=== PATIENT | female | born 1950 | race Two or more races ===

== ENCOUNTER → 2024-05-23 | Outpatient (CLI) | payer MEDICARE, BC, SELFPAY ==
--- NOTE | 2024-05-23 09:30 | XR_ITS ---
Examination: Breast ultrasound complete, bilateral Date and time of exam: May 23, 2024 0937 hours INDICATIONS: Mammogram April 18, 2024 retroareolar focal asymmetry 28 mm right breast and retroareolar region left breast Technique: Real-time grayscale ultrasonographic imaging bilateral breasts, including all 4 quadrants as well as nipple retroareolar and axillary regions. Findings: Sonographic images right breast 2:00 oval mass circumscribed 3 x 2 x 3 mm Sonographic images left breast 2:00 cyst 2.2 x 0.9 x 1.4 cm with internal debris, consider seroma, clinical correlation advised IMPRESSION: 2:00 cystic area left breast with internal echoes 2.2 x 0.9 x 1.4 cm, this is amenable to ultrasound-guided aspiration and cytologic analysis as clinically warranted
--- NOTE | 2024-05-23 10:45 | XR_ITS ---
Examination: Diagnostic digital mammography, bilateral Computer aided detection 3-D breast Tomosynthesis, bilateral Date and time of exam: May 23, 2024 0951 hours INDICATIONS: Mammogram April 18, 2024, 20 mm focal asymmetry inner right breast CC view, focal asymmetry retroareolar region left breast Technique: Nonmagnified MLO, CC views of the breasts to been obtained, reconstructed from 3-D Tomosynthesis images. R2 computer aided detection program utilized for evaluation of suspicious masses and/or abnormal calcifications. 3-D Tomosynthesis images obtained. Findings: The breasts are heterogeneously dense, which may obscure small masses Architectural distortion left breast skin thickening again noted consistent with history treated left breast cancer Focal asymmetry inner right breast CC view remains No discrete left breast mass identified, please see the left breast sonogram report today indicating several nerve versus cyst 2:00 position left breast Impression: BI-RADS Category 3: Probably benign findings One additional 6 month right mammogram follow-up is needed to document stability of focal asymmetry inner right breast CC view.
== END | disposition home or self-care (01) ==
PROVIDERS: PCP Nurse Practitioner Family; Referring Provider Nurse Practitioner Family; Visit Provider Nurse Practitioner Family
DX: R92.333 Mammographic heterogeneous density, bilateral breasts (principal); N64.89 Other specified disorders of breast; N60.02 Solitary cyst of left breast
CPT/HCPCS: 76641; 77062; 77066; G0279

== ENCOUNTER → 2024-07-01 | Outpatient (CLI) | payer MEDICARE, BC, SELFPAY ==
--- NOTE | 2024-07-01 15:28 | XR_ITS ---
Examination: PA lateral chest 2 views TECHNIQUE: Upright PA lateral chest 2 views Exam date and time: July 01, 2024 at 1602 hours Comparison September 07, 2023 INDICATIONS: Preop lumbar spine surgery scheduled July 12, 2024 FINDINGS: Mild prominence left ventricle No pneumonia or pulmonary edema Moderate thoracic spondylosis Anterior mediastinal surgical clips IMPRESSION: Mild prominence left ventricle No pneumonia or pulmonary edema
[2024-07-01 16:36] LABS: Basophils % (Auto) 1 % (0-2.5); Eosinophils # (Auto) 0.2 Thou/mm3 (0.0-0.5); Eosinophils % (Auto) 3 % (0-10); Hematocrit 41.2 % (36.0-46.0); Hemoglobin 13.2 g/dL (12.0-16.0); Immature Granulocytes % (Auto) 0 % (0-0); Immature Granulocytes Auto 0.01 Thou/mm3 (0.00-0.00); Lymphocytes # (Auto) 2.1 Thou/mm3 (1.0-4.8); Lymphocytes % (Auto) 30 % (10-50); Mean Corpuscular Hemoglobin 28.8 pg (25.0-35.0); Mean Corpuscular Volume 90 fL (80-100); Monocytes # (Auto) 0.7 Thou/mm3 (0.0-0.8); Monocytes % (Auto) 10 % (0-12); Neutrophils # (Auto) 3.9 Thou/mm3 (1.8-7.7); Neutrophils % (Auto) 56 % (37-80); Nucleated Red Blood Cell % 0 /100 WBC (0); Platelet Count 235 Thou/mm3 (140-440); Red Blood Count 4.59 Miln/mm3 (4.00-5.20)
[2024-07-01 16:50] LABS: Prothrombin Time 10.8 Seconds (9.0-12.2)
[2024-07-01 16:55] LABS: Collection Type, Urine Clean Catch
[2024-07-01 16:56] LABS: Glucose Estimated Average 97 mg/dL (80-131)
[2024-07-01 16:57] LABS: Alanine Aminotransferase 23 U/L (10-49); Albumin, Serum 4.7 gm/dL (3.4-4.8); Alkaline Phosphatase 47 U/L (46-116); Anion Gap 8 (7-16); Aspartate Amino Transferase 21 U/L (0-34); BUN/Creatinine Ratio 22 Ratio (12-20); Bilirubin,Total 0.3 mg/dL (0.3-1.2); Blood Urea Nitrogen 22 mg/dL (9-23); Calcium 9.4 mg/dL (8.3-10.6); Calcium (Corrected) 9.4 mg/dL (8.5-10.1); Carbon Dioxide 27.8 mMol/L (20.0-31.0); Chloride 106 mMol/L (98-107); Globulin 2.3 gm/dL (2.3-3.5); Glucose 117 mg/dL (74-106); Osmolality,Calculated 287 (275-295); Potassium 4.1 mMol/L (3.4-5.1); Sodium 142 mMol/L (136-145); eGFR 59 See Note
[2024-07-01 16:59] LABS: Vitamin D 25 Hydroxy Total 13.1 ng/mL (7.3-40.2)
[2024-07-01 17:47] LABS: Bacteria,Urine 1+; Bilirubin,Urine 1+ (Negative); Blood,Urine Negative (Negative); Clarity,Urine Hazy (Clear/Hazy); Color,Urine Yellow (Lt Yel-Yel); Culture Indicated,Urine Contaminated; Glucose, Urine Negative (Negative); Hyaline Casts,Urine < 1 /hpf (0-1); Ketones,Urine Trace (Negative); Leukocyte Esterase,Urine Positive (Negative); Nitrite,Urine Negative (Negative); PH,Urine 5.5 (5.0-7.0); Protein,Urine 1+ (Neg - Trace); RBC,Urine 14 /hpf (0-3); Specific Gravity,Urine 1.036 (1.001-1.035); Squamous Epithelial Cell,Urine 15 /hpf (0-5); WBC,Urine 14 /hpf (0-5)
== END | disposition home or self-care (01) ==
LOC: COPL 15:10
PROVIDERS: PCP Family Medicine; Referring Provider Nurse Practitioner Family; Visit Provider Radiology Diagnostic Radiology
DX: I11.9 Hypertensive heart disease without heart failure (principal); M48.062 Spinal stenosis, lumbar region with neurogenic claudication
CPT/HCPCS: 36415; 71046; 80053; 81001; 82306; 83036; 85025; 85610; 85730

== ENCOUNTER → 2024-07-04 | Outpatient (CLI) | payer MEDICARE, BC, SELFPAY ==
[2024-07-04 15:59] LABS: Collection Type, Urine Clean Catch
[2024-07-04 16:34] LABS: Bacteria,Urine 3+; Bilirubin,Urine Negative (Negative); Blood,Urine Trace (Negative); Color,Urine Yellow (Lt Yel-Yel); Glucose, Urine Negative (Negative); Ketones,Urine Trace (Negative); Leukocyte Esterase,Urine Positive (Negative); Nitrite,Urine Negative (Negative); PH,Urine 5.5 (5.0-7.0); Protein,Urine 1+ (Neg - Trace); RBC,Urine 11 /hpf (0-3); Specific Gravity,Urine 1.036 (1.001-1.035); Squamous Epithelial Cell,Urine 105 /hpf (0-5); Urobilinogen,Urine Negative mg/dL (0.0-1.0); WBC,Urine 25 /hpf (0-5)
[2024-07-04 16:38] LABS: Clarity,Urine Cloudy (Clear/Hazy)
== END | disposition home or self-care (01) ==
LOC: SLDO 15:49
PROVIDERS: PCP Nurse Practitioner Family; Referring Provider Nurse Practitioner Family; Visit Provider Nurse Practitioner Family
DX: N39.0 Urinary tract infection, site not specified (principal)
CPT/HCPCS: 81001; 87077; 87086; 87186

== ENCOUNTER 2024-07-06 14:37 | Outpatient (RCR) | payer MEDICARE, BC, SELFPAY ==
--- NOTE | 2024-07-07 14:27 | CTCFLWUP_ITS ---
Patient: MARIANA ENGEL : 1950 Page 2 of 2 FOLLOW UP NOTE DATE OF SERVICE: 07/06/2024 NAME: MARIANA ENGEL ACCOUNT: [id number] : 1950 AGE: 73 INTERVAL HISTORY: Doing well with no new complaints. Patient is being planned for procedure on her back. She has stop ped taking her anastrozole and will resume after the surgery on Thursday. 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 01/11/2019: Bone density test?normal mineralization based on lumbar spine measurements, normal mineral ization based on hip measurements. Lumbar mineralization increased 4.1% compared to February 24, 2012. Hip mineralization decreased to 6.9% compared with 02/24/2012. 01/17/2019: Patient had left breast ultrasound done for a left breast palpable lump at 12 o'clock posi tion of 2 months duration. 02/07/2019: Ultrasound-guided biopsy of the left breast mass was performed. Pathology showed intermed iate grade ER positive (more than 90%), FL positive (more than 50%), HER-2/huong negative invasive ductal carcinoma. 02/24/2019: Patient was seen by radiation oncologist Dr. Sam Foster. 03/03/2019: Patient had left breast partial mastectomy with left axillary sentinel lymphadenectomy. 0 04/12/2019?12 04/2019: Patient received 6600 cGy radiation to the left breast. 06/09/2019: Patient was started on anastrozole, Citracal as well as Prolia. 01/17/2020: Bilateral breast ultrasound? 02/22/2020: Left breast cyst aspiration? 03/01/2021: Left breast cyst aspiration? 07/28/2021: Right breast diagnostic mammogram? 01/20/2022: Bilateral screening mammograms?BI-RADS Category 2: Benign findings. 03/05/2022: Bone density 04/14/2023: Bilateral breast mammogram screening Findings: The breasts are heterogeneously dense, which may obscure small masses. Stable left-sided postoperative changes. Left retroareolar asymmetry. No evidence of abnormal masses or suspicious calcifications. Impression: Left retroareolar asymmetry. Spot compression views and ultrasound evaluation recommended. 07/09/2023: Left breast biopsy, no malignant cells. 07/27/2023: CEA 2.0, CA 15-3 is 11.0 02/15/2024: Left breast diagnostic mammogram 02/19/2024: Left breast ultrasound 02/25/2024: CEA 1.4, CA 15-3 is 14.6 03/07/2024: Left breast biopsy and aspiration 03/08/2024: Left breast diagnostic mammogram OTHER MEDICAL HISTORY/CONDITIONS: FAMILY HISTORY: SOCIAL HISTORY: ARCHITECTURE TECHNICIAN HISTORY: MEDICATIONS: 1. anastrozole - 1 mg 1 tab Daily 2. Citracal - 1 tab Twice a Day 3. fenofibrate - 54 mg 1 tab Daily 4. losartan - 50 mg 1 tab Daily Medications Last Reconciled by Ene Ballard MA on 07/06/2024 ALLERGIES: No Known Allergies REVIEW OF SYSTEMS: A complete 14-point review of systems was performed and is negative except as noted in interval histo ry. PHYSICAL EXAMINATION: VITAL SIGNS: Temperature?98.4, B/P?148/77, Oxygen?Saturation?95% PAIN: 3 - Between mild and moderate pain ECOG Performance Status: 1 - Symptomatic; ambulatory; restricted in strenuous activity GENERAL APPEARANCE: Appears well, in no apparent distress, appropriately interactive. HEENT: Normocephalic, no temporal wasting, normal conjunctiva, no scleral icterus, normal hearing, li ps without lesions, neck normal range of motion. CARDIOVASCULAR: Not assessed. PULMONARY: Normal respiratory effort, no respiratory distress or use of accessory muscles, speaking i n full sentences, no tachypnea. EXTREMITIES: No pedal edema or cyanosis. SKIN: Normal skin appearance. NEUROLOGIC: Alert and oriented x4. PSHYCHIATRIC: Appropriate affect, mood normal, behavior normal, intact thought and speech. Breast examination revealed scarring from surgery in the left breast. Otherwise no palpable masses i n either breast or axilla LABORATORY DATA: I have personally reviewed and interpreted each of the patient?s relevant lab tests, abnormal finding s are below: Date 07/01/24 ??WHITE?BLOOD?COUNT?(Thou/mm3) 7.0 ??RED?BLOOD?COUNT?(Miln/mm3) 4.59 ??HEMOGLOBIN?(gm/dl) 13.2 ??HEMATOCRIT?(%) 41.2 ??PLATELET?COUNT?(Thou/mm3) 235 ??NEUTROPHILS?%,?AUTO?(%) 56 ??LYMPH?%,?AUTO?(%) 30 ??NEUTROPHILS,?AUTO?(Thou/mm3) 3.9 ASSESSMENT/PLAN: . 1. Stage IIa, ER positive, FL positive, HER-2/huong negative high-grade invasive ductal carcinoma with the superior margin being positive off the left breast as described above status post lumpectomy and sentinel node biopsy. Oncotype DX recurrence score 20 4. Status post radiation therapy. 5. Hypertension 6. Left breast biopsy, no malignancy, 03/07/2024 and 07/09/2023. Patient now want to follow-up with Dr Samantha Bowens's and will do any biopsy with him only. She does not like that she has to have multiple mamm ograms and ultrasound followed with biopsies. She likes to follow-up for imaging also with a Dr. Erlin seals. 7. Patient reports she had a normal colonoscopy in 2014. 8. Left breast ultrasound recommending repeat aspiration of partial cystic mass, 02/19/2024. 9. Bilateral mammogram screening scheduled for 04/18/2024. 1. No clinical evidence of recurrence. 2. Continue anastrozole, Citracal as well as Prolia. 3. DEXA. 4. Return to clinic for follow-up in 3 to 4 months. 5. CBC CMP CA 15-3 prior to follow-up Patient will resume anastrozole once surgery is done CBC CMP CA 15-3 RETURN TO CLINIC: 6 months BILLING AND COMPLIANCE: I reviewed external records from providers outside my specialty as summarized above. I spent a total of 50 minutes on this patient?s care on the day of their visit excluding time spent related to any bi lled procedures. This time includes time spent with the patient as well as time spent documenting in the medical record, reviewing patients records and tests, obtaining history, placing orders, communi cating with other healthcare professionals, counseling the patient, family or caregiver, and/or care coordination for the diagnoses above. Electronically Signed by: Giovanny Hood MD T: 2:25 PM CC: PCP: Teagan Raymundo Referring: Teagan Raymundo This document was completed utilizing speech recognition software. Grammatical errors, random word in sertions, pronoun errors, and incomplete sentences are an occasional consequence of this system due t o software limitations, ambient noise, and hardware issues. Any formal questions or concerns about th e content, text or information contained within the body of this dictation should be directly address ed to the provider for clarification.
== END 2024-07-22 23:59 | disposition home or self-care (01) ==
LOC: SCTC 14:37
PROVIDERS: PCP Nurse Practitioner Family; Referring Provider Nurse Practitioner Family; Visit Provider Internal Medicine Hematology & Oncology
DX: C50.412 Malignant neoplasm of upper-outer quadrant of left female breast (principal); Z17.0 Estrogen receptor positive status [ER+]; Z17.21 Progesterone receptor positive status; Z17.32 Human epidermal growth factor receptor 2 negative status; Z90.12 Acquired absence of left breast and nipple; Z92.3 Personal history of irradiation; Z79.811 Long term (current) use of aromatase inhibitors; I10 Essential (primary) hypertension
CPT/HCPCS: 99212; G0463

== ENCOUNTER → 2024-08-23 | Outpatient (CLI) | payer MEDICARE, BC, SELFPAY ==
[2024-08-23 14:06] LABS: Basophils # (Auto) 0.1 Thou/mm3 (0.0-0.2); Basophils % (Auto) 1 % (0-2.5); Eosinophils # (Auto) 0.2 Thou/mm3 (0.0-0.5); Eosinophils % (Auto) 2 % (0-10); Hematocrit 38.7 % (36.0-46.0); Hemoglobin 12.6 g/dL (12.0-16.0); Immature Granulocytes % (Auto) 0 % (0-0); Immature Granulocytes Auto 0.02 Thou/mm3 (0.00-0.00); Lymphocytes # (Auto) 2.3 Thou/mm3 (1.0-4.8); Lymphocytes % (Auto) 29 % (10-50); Mean Corpuscular HGB Conc 32.6 g/dl (31.0-37.0); Mean Corpuscular Hemoglobin 28.4 pg (25.0-35.0); Mean Corpuscular Volume 87 fL (80-100); Monocytes # (Auto) 0.7 Thou/mm3 (0.0-0.8); Monocytes % (Auto) 9 % (0-12); Neutrophils # (Auto) 4.7 Thou/mm3 (1.8-7.7); Neutrophils % (Auto) 59 % (37-80); Nucleated Red Blood Cell % 0 /100 WBC (0); Platelet Count 257 Thou/mm3 (140-440); RDW Standard Deviation 44.2 fL (36.4-46.3); Red Blood Count 4.43 Miln/mm3 (4.00-5.20)
[2024-08-23 14:25] LABS: Alanine Aminotransferase 16 U/L (10-49); Albumin, Serum 4.4 gm/dL (3.4-4.8); Albumin/Globulin Ratio 1.7 (1.2-2.2); Alkaline Phosphatase 59 U/L (46-116); Anion Gap 9 (7-16); Aspartate Amino Transferase 20 U/L (0-34); BUN/Creatinine Ratio 13 Ratio (12-20); Bilirubin,Total 0.3 mg/dL (0.3-1.2); Blood Urea Nitrogen 13 mg/dL (9-23); Calcium 10.2 mg/dL (8.3-10.6); Calcium (Corrected) 10.2 mg/dL (8.5-10.1); Carbon Dioxide 27.8 mMol/L (20.0-31.0); Chloride 106 mMol/L (98-107); Globulin 2.6 gm/dL (2.3-3.5); Glucose 122 mg/dL (74-106); Osmolality,Calculated 286 (275-295); Sodium 143 mMol/L (136-145); eGFR 58 See Note
[2024-08-23 14:38] LABS: CA 15-3 11.6 U/mL (<32.4); Carcinoembryonic Antigen 1.5 ng/mL (0.0-5.0)
== END | disposition home or self-care (01) ==
LOC: SCTO 13:29
PROVIDERS: PCP Family Medicine; Referring Provider Nurse Practitioner Family; Visit Provider Nurse Practitioner Family
DX: C50.412 Malignant neoplasm of upper-outer quadrant of left female breast (principal); I10 Essential (primary) hypertension
CPT/HCPCS: 36415; 80053; 82378; 85025; 86300

== ENCOUNTER → 2024-08-26 | Outpatient (CLI) | payer MEDICARE, BC, SELFPAY ==
--- NOTE | 2024-08-26 10:00 | XR_ITS ---
Examination: Abdomen sonogram, complete Date and time of exam: August 26, 2024 0958 hours INDICATIONS: Epigastric pain beginning 2 months ago. Technique: Multiple real-time grayscale transabdominal sonographic images of the abdomen have been obtained. Findings: Absent gallbladder Common bile duct 0.5 cm Pancreatic head 2.3 cm Aorta not enlarged Liver 15.8 cm fatty infiltration smooth contour Normal hepatopedal portal venous flow Patent IVC Right kidney 10.1 cm renal cortex 1.8 cm Left kidney 11.8 cm cortex 1.9 cm Mild bilateral renal parenchymal scar formation Spleen 10.3 cm IMPRESSION: Mild bilateral renal parenchymal scar formation
== END | disposition home or self-care (01) ==
LOC: CDIM 09:42
PROVIDERS: PCP Family Medicine; Referring Provider Nurse Practitioner Family; Visit Provider Nurse Practitioner Family
DX: N28.89 Other specified disorders of kidney and ureter (principal); C50.412 Malignant neoplasm of upper-outer quadrant of left female breast
CPT/HCPCS: 76700

== ENCOUNTER 2024-08-30 13:16 | Outpatient (RCR) | payer MEDICARE, BC, SELFPAY | END 2024-09-19 23:59 | disposition home or self-care (01) | LOC: SCTC 13:16 | PROVIDERS: PCP Nurse Practitioner Family; Referring Provider Nurse Practitioner Family; Visit Provider Internal Medicine Hematology & Oncology | DX: C50.412 Malignant neoplasm of upper-outer quadrant of left female breast (principal); Z17.0 Estrogen receptor positive status [ER+]; Z17.21 Progesterone receptor positive status; Z17.32 Human epidermal growth factor receptor 2 negative status; Z90.12 Acquired absence of left breast and nipple; Z92.3 Personal history of irradiation; I10 Essential (primary) hypertension; Z79.811 Long term (current) use of aromatase inhibitors | CPT/HCPCS: 96372; J0897 ==

== ENCOUNTER → 2024-09-12 | Outpatient (CLI) | payer MEDICARE, BC, SELFPAY ==
--- NOTE | 2024-09-12 16:50 | XR_ITS ---
Examination: Bilateral hands, 6 views. 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
--- NOTE | 2024-09-12 16:50 | XR_ITS ---
Examination: Bilateral wrists 6 views TECHNIQUE: AP oblique lateral each wrist total 6 views Examination time: 09/10/2024 1733 hours INDICATIONS: Bilateral wrist pain 3 weeks. FINDINGS: Moderate osteopenia. Moderate bilateral osteoarthritis first carpal metacarpal joints [id number] narrowing radiocarpal intercarpal and carpal metacarpal remaining joints No erosive arthritis No fractures or dislocations No avascular necrosis IMPRESSION: Arthritic change as above
== END | disposition home or self-care (01) ==
PROVIDERS: PCP Nurse Practitioner Family; Referring Provider Nurse Practitioner Gerontology; Visit Provider Nurse Practitioner Gerontology
DX: M18.0 Bilateral primary osteoarthritis of first carpometacarpal joints (principal); M25.842 Other specified joint disorders, left hand; M25.841 Other specified joint disorders, right hand; M13.832 Other specified arthritis, left wrist; M13.831 Other specified arthritis, right wrist; M25.832 Other specified joint disorders, left wrist; M25.831 Other specified joint disorders, right wrist
CPT/HCPCS: 73110; 73130

== ENCOUNTER → 2024-11-21 | Outpatient (CLI) | payer MEDICARE, BC, SELFPAY ==
--- NOTE | 2024-11-21 10:45 | XR_ITS ---
Examination: Breast ultrasound complete, bilateral Date and time of exam: November 21, 2024 1102 hours Comparison May 23, 2024 INDICATIONS: History treated left breast cancer, focal asymmetry inner right breast on mammogram April 10, 2024, right breast sonogram May 23, 2024 2:00 nodule 3 x 3 mm Technique: Real-time grayscale ultrasonographic imaging bilateral breasts, including all 4 quadrants as well as nipple retroareolar and axillary regions. Findings: Sonographic images right breast 5:00 circumscribed nodule 6 x 5 mm Sonographic images left breast 12:00 cyst at the area of lumpectomy 2.1 x 1.4 x 1.8 cm likely seroma IMPRESSION: BI-RADS Category 3: Probably benign findings Recommend 1 additional 6 month right breast sonogram follow-up to document stability of 5:00 nodule described above
--- NOTE | 2024-11-21 11:45 | XR_ITS ---
Examination: Diagnostic digital mammography, bilateral Computer aided detection 3-D breast Tomosynthesis, bilateral Date and time of exam: November 21, 2024 1146 hours Compared to mammograms dating to June 08, 2023 INDICATIONS: Personal history left breast cancer focal asymmetry inner right breast CC view Technique: Nonmagnified MLO, CC views of the breasts to been obtained, reconstructed from 3-D Tomosynthesis images. R2 computer aided detection program utilized for evaluation of suspicious masses and/or abnormal calcifications. 3-D Tomosynthesis images obtained. Findings: The breasts are heterogeneously dense, which may obscure small masses Stable extensive scar formation left breast with breast biopsy marker, skin thickening Stable focal asymmetry slightly inner right breast on the CC view Impression: BI-RADS Category 0: Incomplete: Need additional imaging evaluation Awaiting the breast sonography report today.
== END | disposition home or self-care (01) ==
LOC: CDIM 10:27
PROVIDERS: PCP Nurse Practitioner Family; Referring Provider Surgery; Visit Provider Surgery
DX: R92.323 Mammographic fibroglandular density, bilateral breasts (principal); N63.14 Unspecified lump in the right breast, lower inner quadrant
CPT/HCPCS: 76641; 77062; 77066; G0279

== ENCOUNTER → 2024-12-07 | Outpatient (CLI) | payer MEDICARE, BC, SELFPAY ==
[2024-12-07 14:27] LABS: Basophils % (Auto) 1 % (0-2.5); Eosinophils # (Auto) 0.2 Thou/mm3 (0.0-0.5); Eosinophils % (Auto) 3 % (0-10); Hematocrit 36.2 % (36.0-46.0); Hemoglobin 11.9 g/dL (12.0-16.0); Immature Granulocytes % (Auto) 1 % (0-0); Immature Granulocytes Auto 0.03 Thou/mm3 (0.00-0.00); Lymphocytes # (Auto) 2.2 Thou/mm3 (1.0-4.8); Lymphocytes % (Auto) 34 % (10-50); Mean Corpuscular HGB Conc 32.9 g/dl (31.0-37.0); Mean Corpuscular Hemoglobin 28.7 pg (25.0-35.0); Mean Corpuscular Volume 87 fL (80-100); Monocytes # (Auto) 0.5 Thou/mm3 (0.0-0.8); Monocytes % (Auto) 7 % (0-12); Neutrophils # (Auto) 3.6 Thou/mm3 (1.8-7.7); Neutrophils % (Auto) 55 % (37-80); Nucleated Red Blood Cell % 0 /100 WBC (0); Platelet Count 270 Thou/mm3 (140-440); RDW Standard Deviation 44.2 fL (36.4-46.3); Red Blood Count 4.15 Miln/mm3 (4.00-5.20); White Blood Count 6.4 Thou/mm3 (3.6-11.0)
[2024-12-07 14:40] LABS: Alanine Aminotransferase 13 U/L (10-49); Albumin, Serum 4.2 gm/dL (3.4-4.8); Albumin/Globulin Ratio 1.8 (1.2-2.2); Alkaline Phosphatase 48 U/L (46-116); Anion Gap 9 (7-16); Aspartate Amino Transferase 18 U/L (0-34); BUN/Creatinine Ratio 14 Ratio (12-20); Bilirubin,Total 0.3 mg/dL (0.3-1.2); Blood Urea Nitrogen 10 mg/dL (9-23); Calcium 8.9 mg/dL (8.3-10.6); Calcium (Corrected) 8.9 mg/dL (8.5-10.1); Carbon Dioxide 28.1 mMol/L (20.0-31.0); Chloride 102 mMol/L (98-107); Creatinine (Component) 0.7 mg/dL (0.6-1.3); Globulin 2.3 gm/dL (2.3-3.5); Glucose 166 mg/dL (74-106); Osmolality,Calculated 280 (275-295); Potassium 3.6 mMol/L (3.4-5.1); Sodium 139 mMol/L (136-145); Total Protein 6.5 gm/dL (5.7-8.2); eGFR > 60 See Note
[2024-12-07 14:57] LABS: CA 15-3 6.6 U/mL (<32.4); Carcinoembryonic Antigen 1.6 ng/mL (0.0-5.0)
== END | disposition home or self-care (01) ==
LOC: COPL 13:18
PROVIDERS: PCP Nurse Practitioner Family; Referring Provider Nurse Practitioner Family; Visit Provider Nurse Practitioner Family
DX: C50.412 Malignant neoplasm of upper-outer quadrant of left female breast (principal)
CPT/HCPCS: 36415; 80053; 82378; 85025; 86300

== ENCOUNTER 2024-12-15 14:28 | Outpatient (RCR) | payer MEDICARE, BC, SELFPAY ==
--- NOTE | 2024-12-22 03:18 | CTCFLWUP_ITS ---
Patient: MARIANA ENGEL : 1950 Page 7 of 9 FOLLOW UP NOTE DATE OF SERVICE: 12/15/2024 NAME: MARIANA ENGEL ACCOUNT: [id number] : 1950 AGE: 74 INTERVAL HISTORY: Chief Complaint Follow-up for breast cancer treatment, concern about calcium levels, bone density results, and back pain after surgery History of Present Illness [place], a patient with a history of breast cancer, presents for follow-up of her oncology care and bone health management. She reports recent back surgery in June and ongoing concerns about a fluid-filled area at her previous surgical site. The patient mentions feeling fullness in the area where she had breast surgery, though it does not cause her discomfort. She is scheduled to see Dr. Bowens on January 17 for potential management of this issue. Mariana also reports having had problems with pain in aher wrist for which she initially saw a doctor in [place] care who administered steroid injections at various sites without significant improvement. Subsequently, she sought care in [place], where targeted steroid injections guided by imaging provided relief. She notes having a scar from this procedure. Regarding her medication regimen, Mariana continues to take anastrozole as prescribed for her breast cancer treatment. She also receives Prolia injections every 6 months for bone health, with her next dose scheduled for March 02. The patient mentions a change in her blood pressure medication, with her losartan dose increased from 50 mg to 100 mg by her primary care physician. Mariana underwent a mammogram on November 21, which was reported as incomplete. A follow-up breast ultrasound revealed a cyst or pseudoma, necessitating another ultrasound in 6 months. She had back surgery in June, which temporarily interrupted her Prolia treatment schedule. Medications and Supplements - Calcium - Taking one tablet - Reduced intake due to misunderstanding about high calcium levels - Prolia - Injection every 6 months - Last dose in April - Helps maintain bone density - Losartan - Increased from 50 mg to 100 mg - Anastrozole - Taking until 2028 - Steroids - Received injections for pain Review of Systems Musculoskeletal: Positive for back pain. Other: Positive for breast fullness. Laboratory, Imaging, and Diagnostic Test Results - Calcium: - Current: 8.9 (low) - 25 February 2024: 9.7 (high), repeated and corrected to 9.0 (normal) - Trend: Generally on the lower side - Bone Density Scan (April 2024): - Lumbar spine: Decreased since 2021 - Hips: Decreased since 2021 - Overall: Normal - Mammogram (21 November 2024): Incomplete - Breast Ultrasound (date not specified): - Finding: Cyst or pseudoma noted ONCOLOGY HISTORY:?[facility] Oncology Hx? 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 01/11/2019: Bone density test?normal mineralization based on lumbar spine measurements, normal mineralization based on hip measurements. Lumbar mineralization increased 4.1% compared to February 24, 2012. Hip mineralization decreased to 6.9% compared with 02/24/2012. 01/17/2019: Patient had left breast ultrasound done for a left breast palpable lump at 12 o'clock position of 2 months duration. 02/07/2019: Ultrasound-guided biopsy of the left breast mass was performed. Pathology showed intermediate grade ER positive (more than 90%), VA positive (more than 50%), HER-2/huong negative invasive ductal carcinoma. 02/24/2019: Patient was seen by radiation oncologist Dr. Sam Foster. 03/03/2019: Patient had left breast partial mastectomy with left axillary sentinel lymphadenectomy. 0 04/12/2019?04/2019: Patient received 6600 cGy radiation to the left breast. 06/09/2019: Patient was started on anastrozole, Citracal as well as Prolia. 01/17/2020: Bilateral breast ultrasound? 02/22/2020: Left breast cyst aspiration? 03/01/2021: Left breast cyst aspiration? 07/28/2021: Right breast diagnostic mammogram? 01/20/2022: Bilateral screening mammograms?BI-RADS Category 2: Benign findings. 03/05/2022: Bone density 04/14/2023: Bilateral breast mammogram screening Findings: The breasts are heterogeneously dense, which may obscure small masses. Stable left-sided postoperative changes. Left retroareolar asymmetry. No evidence of abnormal masses or suspicious calcifications. Impression: Left retroareolar asymmetry. Spot compression views and ultrasound evaluation recommended. 07/09/2023: Left breast biopsy, no malignant cells. 07/27/2023: CEA 2.0, CA 15-3 is 11.0 02/15/2024: Left breast diagnostic mammogram 02/19/2024: Left breast ultrasound 02/25/2024: CEA 1.4, CA 15-3 is 14.6 03/07/2024: Left breast biopsy and aspiration 03/08/2024: Left breast diagnostic mammogram OTHER MEDICAL HISTORY/CONDITIONS: FAMILY HISTORY: ?Clone Family Hx? SOCIAL HISTORY: PERFORMANCE CONSULTANT HISTORY: Vaginal?Bleeding:?0-None ?Clone PERFORMANCE CONSULTANT Hx? MEDICATIONS: 1. anastrozole - 1 mg 1 tab Daily 2. Citracal - 200 mg 1 tab Daily 3. fenofibrate - 54 mg 1 tab Daily 4. losartan - 50 mg 1 tab Daily?Palabra Meds? Medications Last Reconciled by Nia Hollis MA on 12/15/2024 ALLERGIES: No Known Allergies REVIEW OF SYSTEMS: A complete 14-point review of systems was performed and is negative except as noted in interval history. PHYSICAL EXAMINATION:?[facility] PE? VITAL SIGNS: Temperature?98, B/P?160/80, Oxygen?Saturation?96% Weight?222?lbs PAIN: 0 - No pain ECOG Performance Status: 0 - Asymptomatic and fully active GENERAL APPEARANCE: Appears well, in no apparent distress, appropriately interactive. HEENT: Normocephalic, no temporal wasting, normal conjunctiva, no scleral icterus, normal hearing, lips without lesions, neck normal range of motion. CARDIOVASCULAR: Not assessed. PULMONARY: Normal respiratory effort, no respiratory distress or use of accessory muscles, speaking in full sentences, no tachypnea. EXTREMITIES: No pedal edema or cyanosis. SKIN: Normal skin appearance. NEUROLOGIC: Alert and oriented x4. PSHYCHIATRIC: Appropriate affect, mood normal, behavior normal, intact thought and speech. Breast examination revealed scarring from surgery in the left breast. Otherwise no palpable masses in either breast or axilla LABORATORY DATA: I have personally reviewed and interpreted each of the patient?s relevant lab tests, abnormal findings are below: Date 08/23/24 12/07/24 ??WHITE?BLOOD?COUNT?(Thou/mm3) ? 6.4 ??RED?BLOOD?COUNT?(Miln/mm3) ? 4.15 ??HEMOGLOBIN?(gm/dl) ? 11.9?L ??HEMATOCRIT?(%) ? 36.2 ??PLATELET?COUNT?(Thou/mm3) ? 270 ??NEUTROPHILS?%,?AUTO?(%) ? 55 ??LYMPH?%,?AUTO?(%) ? 34 ??NEUTROPHILS,?AUTO?(Thou/mm3) ? 3.6 ??GLUCOSE,RANDOM?(mg/dL) 122?H 166?H ??BLOOD?UREA?NITROGEN?(mg/dL) 13 10 ??CREATININE?(mg/dL) 1.00 0.70 ??SODIUM?(mmol/L) 143 139 ??POTASSIUM?(mmol/L) 4.0 3.6 ??CHLORIDE?(mmol/L) 106 102 ??CrCl?(CandG)?(ml/min) 52.73 76.11 ??AST/SGOT?(Unit/L) 20 18 ??ALT/SGPT?(Unit/L) 16 13 ??ALKALINE?PHOSPHATASE?(Unit/L) 59 48 ??BILIRUBIN,?TOTAL?(mg/dL) 0.3 0.3 ??PROTEIN?TOTAL?(gm/dl) 7.0 6.5 ??ALBUMIN,?SERUM?(gm/dl) 4.4 4.2 ??GLOBULIN?(gm/dl) 2.6 2.3 ??ALBUMIN/GLOBULIN?RATIO 1.7 1.8 ??CALCIUM,?SERUM?(mg/dL) 10.2 8.9 ??CALCIUM?SERUM?(CORRECTED)?(mg/dL) 10.2?H 8.9 ??CEA?(O*)?(ng/ml) ? 1.6 ASSESSMENT/PLAN:?Sixto Hood Assessment/Plan? . 1. Stage IIa, ER positive, VA positive, HER-2/huong negative high-grade invasive ductal carcinoma with the superior margin being positive off the left breast as described above status post lumpectomy and sentinel node biopsy. Oncotype DX recurrence score 20 Status post radiation therapy. Left breast biopsy, no malignancy, 03/07/2024 and 07/09/2023. Patient now want to follow-up with Dr. Bowens's and will do any biopsy with him only. She does not like that she has to have multiple mammograms and ultrasound followed with biopsies. She likes to follow-up for imaging also with a Dr. Bowens. Patient reports she had a normal colonoscopy in 2014. Left breast ultrasound recommending repeat aspiration of partial cystic mass, 02/19/2024 Patient is currently on anastrozole for breast cancer treatment, which is planned to continue until 2028. Recent mammogram on November 21 was reported as incomplete. Breast ultrasound revealed a cyst or pseudoma at the surgical site, which does not cause discomfort but feels full to the patient. This fluid collection is likely related to the previous breast surgery. Plan: - Continue anastrozole as prescribed until 2028 - Repeat breast ultrasound in 6 months (May) - Referral to lymphedema clinic for potential massage therapy to help drain fluid collection - Follow-up with Dr. Bowens on January 17 for further evaluation of the fluid collection - Patient instructed not to remove fluid as it may refill Osteoporosis Prevention Assessment: Patient is on Prolia (denosumab) for osteoporosis prevention, administered every 6 months. Last bone density scan in April showed normal results overall, but decreased density in lumbar spine and hips compared to 2021. Recent calcium levels have been normal to low, with a current value of 8.9. A previous high calcium reading (9.7) on February 24 was determined to be erroneous after repeat testing. Plan: - Continue Prolia injections every 6 months - Next dose scheduled for March 02 - Educate patient on importance of continuing calcium supplementation - Instruct patient to avoid Prolia administration within 6 months before or after any bone or dental procedures - Continue monitoring calcium levels Wrist Pain Assessment: Patient reports having back surgery in June and receiving steroid injections for pain management in wrist . Initial injections by a local doctor were ineffective, but subsequent treatment at a specialist in [place] using image guidance provided relief. Plan: - Continue current pain management plan as directed by pain specialist - Monitor for any recurrence ORDERS: Order # Description [id number] Basic Metabolic Panel [id number] MD Follow Up 6 Month [id number] Right + Breast Ultrasound [id number] Comprehensive Metabolic Panel - 12 + CBC with Auto Diff + RETURN TO CLINIC: I reviewed the diagnosis, prognosis, and recommended treatment/procedure options with the patient (and/or their legal players club representative), including the potential benefits, risks, side effects and alternative therapies. We also discussed the option of no treatment and the possibility of clinical trial participation, if applicable. All questions were addressed, and they demonstrated understanding. They provided informed consent to proceed with the proposed plan of care. BILLING AND COMPLIANCE: I reviewed external records from providers outside my specialty as summarized above. I spent a total of 50 minutes on this patient?s care on the day of their visit excluding time spent related to any billed procedures. This time includes time spent with the patient as well as time spent documenting in the medical record, reviewing patients records and tests, obtaining history, placing orders, communicating with other healthcare professionals, counseling the patient, family or caregiver, and/or care coordination for the diagnoses above. Electronically Signed by: Giovanny Hood MD T: 3:16 AM CC: PCP: Teagan Raymundo Referring: Teagan Raymundo This document was completed utilizing speech recognition software. Grammatical errors, random word insertions, pronoun errors, and incomplete sentences are an occasional consequence of this system due to software limitations, ambient noise, and hardware issues. Any formal questions or concerns about the content, text or information contained within the body of this dictation should be directly addressed to the provider for clarification.
== END 2024-12-19 23:59 | disposition home or self-care (01) ==
LOC: SCTC 14:28
PROVIDERS: PCP Nurse Practitioner Family; Referring Provider Nurse Practitioner Family; Visit Provider Internal Medicine Hematology & Oncology
DX: C50.412 Malignant neoplasm of upper-outer quadrant of left female breast (principal); Z17.0 Estrogen receptor positive status [ER+]; Z17.21 Progesterone receptor positive status; Z17.32 Human epidermal growth factor receptor 2 negative status; Z92.3 Personal history of irradiation; Z79.811 Long term (current) use of aromatase inhibitors; M25.539 Pain in unspecified wrist
CPT/HCPCS: 99212; G0463

== ENCOUNTER → 2025-01-09 | Outpatient (CLI) | payer MEDICARE, BC, SELFPAY ==
[2025-01-09 10:25] LABS: Collection Type, Urine Clean Catch
[2025-01-09 10:56] LABS: Cardiac Risk Estimate 2.6 RATIO (3.7-5.6); Cholesterol 174 mg/dL (132-200); HDL Cholesterol 66 mg/dL (40-60); LDL Cholesterol,Calculated 84 mg/dL (0-130); Thyroid Stimulating Hormone 1.29 uIU/mL (0.55-4.78); Triglycerides 119 mg/dL (30-150)
[2025-01-09 11:07] LABS: Bilirubin,Urine Negative (Negative); Blood,Urine Negative (Negative); Clarity,Urine Clear (Clear/Hazy); Color,Urine Yellow (Lt Yel-Yel); Culture Indicated,Urine Not Indicated; Glucose, Urine Negative (Negative); Ketones,Urine Negative (Negative); Leukocyte Esterase,Urine Positive (Negative); Nitrite,Urine Negative (Negative); PH,Urine 6.5 (5.0-7.0); Protein,Urine Negative (Neg - Trace); RBC,Urine 2 /hpf (0-3); Specific Gravity,Urine 1.020 (1.001-1.035); Squamous Epithelial Cell,Urine 2 /hpf (0-5); Urobilinogen,Urine Negative mg/dL (0.0-1.0); WBC,Urine 4 /hpf (0-5)
== END | disposition home or self-care (01) ==
LOC: COPL 09:50
PROVIDERS: PCP Family Medicine; Referring Provider Nurse Practitioner Family; Visit Provider Nurse Practitioner Family
DX: I10 Essential (primary) hypertension (principal); E78.5 Hyperlipidemia, unspecified; Z00.00 Encounter for general adult medical examination without abnormal findings
CPT/HCPCS: 36415; 80061; 81001; 84443

== ENCOUNTER → 2025-01-11 | Outpatient (CLI) | payer MEDICARE, BC, SELFPAY ==
[2025-01-16 06:50] LABS: Fecal Globin Result NOT DETECTED (NOT DETECTED)
== END | disposition home or self-care (01) ==
LOC: SLDO 11:11
PROVIDERS: Referring Provider Nurse Practitioner Family; Visit Provider Nurse Practitioner Family
DX: Z00.00 Encounter for general adult medical examination without abnormal findings (principal)
CPT/HCPCS: 82274; 87799; G0328

== ENCOUNTER → 2025-01-27 | Outpatient (CLI) | payer MEDICARE, BC, SELFPAY ==
[2025-01-27 16:34] LABS: Glucose Estimated Average 105 mg/dL (80-131); Hemoglobin A1C 5.3 % Hgb (4.8-6.0)
== END | disposition home or self-care (01) ==
LOC: COPL 14:30
PROVIDERS: PCP Family Medicine; Referring Provider Nurse Practitioner Family; Visit Provider Nurse Practitioner Family
DX: R73.03 Prediabetes (principal)
CPT/HCPCS: 36415; 83036

== ENCOUNTER → 2025-02-23 | Outpatient (CLI) | payer MEDICARE, BC, SELFPAY ==
[2025-02-23 16:32] LABS: Basophils # (Auto) 0.1 Thou/mm3 (0.0-0.2); Basophils % (Auto) 1 % (0-2.5); Eosinophils # (Auto) 0.3 Thou/mm3 (0.0-0.5); Eosinophils % (Auto) 3 % (0-10); Hematocrit 41.0 % (36.0-46.0); Hemoglobin 13.3 g/dL (12.0-16.0); Immature Granulocytes Auto 0.03 Thou/mm3 (0.00-0.00); Lymphocytes # (Auto) 2.9 Thou/mm3 (1.0-4.8); Lymphocytes % (Auto) 30 % (10-50); Mean Corpuscular HGB Conc 32.4 g/dl (31.0-37.0); Mean Corpuscular Hemoglobin 29.7 pg (25.0-35.0); Mean Corpuscular Volume 92 fL (80-100); Monocytes # (Auto) 1.0 Thou/mm3 (0.0-0.8); Monocytes % (Auto) 10 % (0-12); Neutrophils # (Auto) 5.4 Thou/mm3 (1.8-7.7); Neutrophils % (Auto) 56 % (37-80); Nucleated Red Blood Cell # 0.00 Thou/mm3 (0.00-0.00); Nucleated Red Blood Cell % 0 /100 WBC (0); Platelet Count 259 Thou/mm3 (140-440); RDW Standard Deviation 47.1 fL (36.4-46.3); Red Blood Count 4.48 Miln/mm3 (4.00-5.20); White Blood Count 9.6 Thou/mm3 (3.6-11.0)
[2025-02-23 16:48] LABS: Alanine Aminotransferase 23 U/L (10-49); Albumin, Serum 4.2 gm/dL (3.4-4.8); Albumin/Globulin Ratio 2.0 (1.2-2.2); Alkaline Phosphatase 55 U/L (46-116); Anion Gap 11 (7-16); Aspartate Amino Transferase 21 U/L (0-34); BUN/Creatinine Ratio 25 Ratio (12-20); Bilirubin,Total 0.3 mg/dL (0.3-1.2); Blood Urea Nitrogen 28 mg/dL (9-23); Calcium 10.3 mg/dL (8.3-10.6); Calcium (Corrected) 10.3 mg/dL (8.5-10.1); Carbon Dioxide 28.0 mMol/L (20.0-31.0); Chloride 106 mMol/L (98-107); Creatinine (Component) 1.1 mg/dL (0.6-1.3); Globulin 2.1 gm/dL (2.3-3.5); Glucose 94 mg/dL (74-106); Osmolality,Calculated 294 (275-295); Potassium 4.2 mMol/L (3.4-5.1); Sodium 145 mMol/L (136-145); Total Protein 6.3 gm/dL (5.7-8.2); eGFR 52 See Note
[2025-02-23 17:07] LABS: CA 15-3 9.3 U/mL (<32.4); Carcinoembryonic Antigen 1.2 ng/mL (0.0-5.0)
== END | disposition home or self-care (01) ==
LOC: SCTO 15:38
PROVIDERS: PCP Family Medicine; Referring Provider Nurse Practitioner Family; Visit Provider Nurse Practitioner Family
DX: C50.412 Malignant neoplasm of upper-outer quadrant of left female breast (principal)
CPT/HCPCS: 36415; 80053; 82378; 85025; 86300

== ENCOUNTER → 2025-03-14 | Outpatient (CLI) | payer MEDICARE, BC, SELFPAY ==
--- NOTE | 2025-03-14 14:17 | XR_ITS ---
EXAMINATION: Cervical spine, 5 views Technique: Cervical spine AP, AP odontoid, lateral, bilateral obliques, 5 views Exam date and time: March 14, 2025, 1428 hours INDICATIONS: Neck pain beginning one month ago. FINDINGS: Adequate alignment cervical vertebral bodies Prominent osteopenia. No acute cervical fracture Moderate degenerative disc disease C6-C7 with mild bilateral neural foraminal stenosis IMPRESSION: Moderate degenerative disc disease C6-C7
== END | disposition home or self-care (01) ==
PROVIDERS: PCP Nurse Practitioner Family; Referring Provider Physician Assistant; Visit Provider Physician Assistant
DX: M50.323 Other cervical disc degeneration at C6-C7 level (principal)
CPT/HCPCS: 72050

== ENCOUNTER 2025-03-16 14:28 | Outpatient (RCR) | payer MEDICARE, BC, SELFPAY | END 2025-03-21 23:59 | disposition home or self-care (01) | LOC: SCTC 14:28 | PROVIDERS: PCP Family Medicine; Referring Provider Family Medicine; Visit Provider Internal Medicine Hematology & Oncology | DX: C50.812 Malignant neoplasm of overlapping sites of left female breast (principal); Z17.21 Progesterone receptor positive status; Z17.0 Estrogen receptor positive status [ER+]; Z17.32 Human epidermal growth factor receptor 2 negative status; Z90.12 Acquired absence of left breast and nipple; Z79.811 Long term (current) use of aromatase inhibitors | CPT/HCPCS: 96372; J0897 ==

== ENCOUNTER → 2025-06-07 | Outpatient (CLI) | payer MEDICARE, BC, SELFPAY ==
[2025-06-07 16:45] LABS: Alanine Aminotransferase 19 U/L (10-49); Albumin, Serum 4.8 gm/dL (3.4-4.8); Albumin/Globulin Ratio 1.8 (1.2-2.2); Alkaline Phosphatase 51 U/L (46-116); Anion Gap 12 (7-16); Aspartate Amino Transferase 25 U/L (0-34); BUN/Creatinine Ratio 15 Ratio (12-20); Bilirubin,Total 0.3 mg/dL (0.3-1.2); Blood Urea Nitrogen 12 mg/dL (9-23); Calcium 9.2 mg/dL (8.3-10.6); Calcium (Corrected) 9.2 mg/dL (8.5-10.1); Carbon Dioxide 26.1 mMol/L (20.0-31.0); Chloride 106 mMol/L (98-107); Creatinine (Component) 0.8 mg/dL (0.6-1.3); Globulin 2.6 gm/dL (2.3-3.5); Glucose 123 mg/dL (74-106); Osmolality,Calculated 287 (275-295); Potassium 3.9 mMol/L (3.4-5.1); Sodium 144 mMol/L (136-145); Total Protein 7.4 gm/dL (5.7-8.2); eGFR > 60 See Note
[2025-06-07 16:50] LABS: Basophils # (Auto) 0.1 Thou/mm3 (0.0-0.2); Basophils % (Auto) 1 % (0-2.5); Eosinophils # (Auto) 0.2 Thou/mm3 (0.0-0.5); Eosinophils % (Auto) 3 % (0-10); Hematocrit 39.8 % (36.0-46.0); Hemoglobin 12.6 g/dL (12.0-16.0); Immature Granulocytes Auto 0.02 Thou/mm3 (0.00-0.00); Lymphocytes # (Auto) 2.0 Thou/mm3 (1.0-4.8); Lymphocytes % (Auto) 28 % (10-50); Mean Corpuscular HGB Conc 31.7 g/dl (31.0-37.0); Mean Corpuscular Hemoglobin 28.3 pg (25.0-35.0); Mean Corpuscular Volume 89 fL (80-100); Monocytes # (Auto) 0.7 Thou/mm3 (0.0-0.8); Monocytes % (Auto) 10 % (0-12); Neutrophils # (Auto) 4.2 Thou/mm3 (1.8-7.7); Neutrophils % (Auto) 59 % (37-80); Nucleated Red Blood Cell # 0.00 Thou/mm3 (0.00-0.00); Nucleated Red Blood Cell % 0 /100 WBC (0); Platelet Count 246 Thou/mm3 (140-440); RDW Standard Deviation 44.9 fL (36.4-46.3); Red Blood Count 4.45 Miln/mm3 (4.00-5.20); White Blood Count 7.2 Thou/mm3 (3.6-11.0)
== END | disposition home or self-care (01) ==
LOC: SCTO 15:40
PROVIDERS: PCP Nurse Practitioner Family; Referring Provider Internal Medicine Hematology & Oncology; Visit Provider Internal Medicine Hematology & Oncology
DX: C50.412 Malignant neoplasm of upper-outer quadrant of left female breast (principal)
CPT/HCPCS: 36415; 80053; 85025

== ENCOUNTER 2025-06-12 13:50 | Outpatient (RCR) | payer MEDICARE, BC, SELFPAY | END 2025-06-21 23:59 | disposition home or self-care (01) | LOC: SCTC 13:50 | PROVIDERS: PCP Nurse Practitioner Family; Referring Provider Nurse Practitioner Family; Visit Provider Nurse Practitioner Family | DX: C50.812 Malignant neoplasm of overlapping sites of left female breast (principal); Z17.0 Estrogen receptor positive status [ER+]; Z17.21 Progesterone receptor positive status; Z17.32 Human epidermal growth factor receptor 2 negative status; Z90.12 Acquired absence of left breast and nipple; Z79.811 Long term (current) use of aromatase inhibitors; M25.539 Pain in unspecified wrist; G89.29 Other chronic pain; M54.9 Dorsalgia, unspecified | CPT/HCPCS: 99212; G0463 ==